=== PATIENT | male | born 1965 | race Caucasian/White ===

== ENCOUNTER 2018-11-19 08:10 | Day surgery (SDC) | payer BC ==
[2018-11-16 11:16] VITALS: BMI 26.1
[~2018-11-19 08:10] MED LIST: LACTATED RINGERS 1,000 ML IV SCH
[2018-11-19 08:21] VITALS: RESP 16; TEMP 97.2
[2018-11-19] MEDS ORDERED: LIDOCAINE 1% 20 ML VIAL (10MG/ML) FOR IV START INTRADERMA ONE (08:30)
[2018-11-19] MEDS ORDERED: PROPOFOL 10 MG/ML 20 ML VIAL IV ONE (09:02)
[2018-11-19] MEDS ORDERED: LIDOCAINE 1% INJ 10MG/ML (20 ML MDV) ONE (09:02)
--- NOTE | 2018-11-19 09:16 | P.GSHP ---
History of Present Illness H&P Date: 11/19/18 Chief Complaint: Colon cancer screening Patient here today for colonoscopy. He has not had one previously. No bowel related complaints. No family history of colon cancer. Past Medical History Past Medical History: Sleep Apnea/CPAP/BIPAP Additional Past Medical History / Comment(s): uses cpap History of Any Multi-Drug Resistant Organisms: None Reported Past Surgical History: Orthopedic Surgery Additional Past Surgical History / Comment(s): knee procedure Past Anesthesia/Blood Transfusion Reactions: No Reported Reaction Smoking Status: Current every day smoker - Past Family History Mother Family Medical History: Deep Vein Thrombosis (DVT) Father Family Medical History: Cancer Additional Family Medical History / Comment(s): prostate Medications and Allergies Home Medications Medication Instructions Recorded Confirmed Type Statin(To Bring Info Day Of ) 1 tab PO Q3D 11/16/18 11/19/18 History Allergies Allergy/AdvReac Type Severity Reaction Status Date / Time No Known Allergies Allergy Verified 11/19/18 08:31 Surgical - Exam Vital Signs Temp Pulse Resp BP Pulse Ox 97.2 F L 84 16 130/82 99 11/19/18 08:20 11/19/18 08:20 11/19/18 08:20 11/19/18 08:20 11/19/18 08:20 Physical exam: General: Well-developed, well-nourished HEENT: Normocephalic, sclerae nonicteric Abdomen: Nontender, nondistended Extremities: No edema Neuro: Alert and oriented Assessment and Plan (1) Colon cancer screening Narrative/Plan: Will proceed with colonoscopy Current Visit: Yes Status: Acute Code(s): Z12.11 - ENCOUNTER FOR SCREENING FOR MALIGNANT NEOPLASM OF COLON SNOMED Code(s): 779939734
[2018-11-19] MEDS ORDERED: IV FLUID CONTINUATION 200 ML IV ONE (09:43)
--- NOTE | 2018-11-19 09:58 | P.PCN ---
Date of Procedure: 11/19/18 Procedure(s) Performed: PREOPERATIVE DIAGNOSIS: Colon cancer screening POSTOPERATIVE DIAGNOSIS: Polyps, diverticulosis PROCEDURE: Colonoscopy with snare polypectomy ANESTHESIA: MAC SURGEON: Ghulam Roman M.D. SPECIMENS: Colon polyps ENDOSCOPIC PROCEDURE: The patient was placed on the endoscopy table in the left decubitus position. The Olympus colonoscope was inserted into the anus and passed under direct visualization to the base of the cecum. The appendiceal orifice was visualized. From that point the scope was slowly withdrawn inspecting all surfaces carefully. There were no neoplastic inflammatory or polypoid lesions throughout the cecum. In the ascending colon a small polyp was removed using the snare with cautery technique. In the mid transverse colon and additional small polyp was removed using the snare with cautery technique. In the descending colon at 60 cm there was a 1-1.5 cm pedunculated polyp that was removed using the snare cautery technique and an adjacent smaller polyp next to that that was removed as well. The remainder of the descending sigmoid and rectum were free of any neoplastic inflammatory or polypoid lesions. There was mild left-sided diverticulosis. Digital rectal examination was normal. The patient was taken to the recovery room in stable condition per anesthesia guidelines. RECOMMENDATIONS: Await biopsy results but given the size of the descending colon polyp advise follow-up colonoscopy in one to 2 years.
[2018-11-19 10:04] VITALS: BP 130/74; PULSE 61
== END 2018-11-19 10:40 | disposition home or self-care (01) ==
LOC: ORWHC2ENDO 08:10
PROVIDERS: ATTEND Surgery
DX: Z12.11 Encounter for screening for malignant neoplasm of colon (principal); D12.2 Benign neoplasm of ascending colon; D12.4 Benign neoplasm of descending colon; F17.200 Nicotine dependence, unspecified, uncomplicated; K57.30 Diverticulosis of large intestine without perforation or abscess without bleeding; G47.33 Obstructive sleep apnea (adult) (pediatric); E78.5 Hyperlipidemia, unspecified; F17.210 Nicotine dependence, cigarettes, uncomplicated; Z79.899 Other long term (current) drug therapy; Z99.89 Dependence on other enabling machines and devices; Z98.52 Vasectomy status
CPT/HCPCS: 88305; 45385; J2001; J2704